=== PATIENT | female | born 2005 | race Caucasian/White ===

== ENCOUNTER 2024-10-03 04:38 | Emergency (ER) | payer BC, MEDICAID ==
[2024-10-03 05:21] LABS: BILIRUBIN,URINE NEGATIVE (NEGATIVE); GLUCOSE,URINE NEGATIVE (NEGATIVE); KETONES,URINE NEGATIVE (NEGATIVE); LEUKOCYTE ESTERASE,URINE NEGATIVE (NEGATIVE); NITRITE,URINE POSITIVE (NEGATIVE); OCCULT BLOOD,URINE NEGATIVE (NEGATIVE); PROTEIN,URINE 30 mg/dL (NEGATIVE); UROBILINOGEN,URINE 0.2 EU/dL (<2.0)
[2024-10-03 05:22] LABS: APPEARANCE,URINE HAZY; COLOR,URINE DARK YELLOW
[2024-10-03 05:30] LABS: EPITHELIAL CELLS,URINE FEW (NONE-FEW); RBC,URINE 0-2 (0-2/HPF)
[2024-10-03 05:31] LABS: BACTERIA,URINE FEW (NEGATIVE); MUCUS,URINE LIGHT (NONE-MOD)
== END 2024-10-03 05:54 | disposition home or self-care (01) ==
LOC: MW.ED 04:38
DX: B34.9 Viral infection, unspecified (principal); N39.0 Urinary tract infection, site not specified; Z91.013 Allergy to seafood; Z79.899 Other long term (current) drug therapy
CPT/HCPCS: 71046; 71046-26; 81001; 87428-QW; 99284